=== PATIENT | female | born 1955 | race Caucasian/White ===

== ENCOUNTER 2018-10-27 10:54 | Outpatient (CLI) | payer MEDICARE, MEDICAID ==
--- NOTE | 2018-10-27 11:56 | RAD ---
XR Cerv Sp Ap Lat STANDARD History: M [age] spondylolisthesis Comparison: None. Findings: ACDF hardware at C3-C5 without hardware complication. No migration of the discectomy change s. Advanced degenerative disc space disease at C2/C3 and C5/C6. Moderate degenerative disc space disease at C6/C7. Moderate facet arthropathy C2-C5. No acute fracture. Impression: 1. Intact ACDF hardware without complication. 2. Advanced degenerative change.
== END 2018-10-27 10:55 | disposition home or self-care (01) ==
LOC: TBSIIMAG 10:54
PROVIDERS: ATTEND Neurological Surgery
DX: M43.12 Spondylolisthesis, cervical region (principal); M47.812 Spondylosis without myelopathy or radiculopathy, cervical region; Z98.1 Arthrodesis status
CPT/HCPCS: 72040

== ENCOUNTER 2018-12-16 13:59 | Outpatient (CLI) | payer MEDICARE, MEDICAID ==
--- NOTE | 2018-12-16 15:33 | RAD ---
CERVICAL SPINE SERIES THREE VIEWS: 12/16/18 HISTORY: Follow-up with surgery. COMPARISON: 10/27/18 study. Anterior cervical fusion plate and screws again noted extending from C3 to C5. Marked degenerative ch anges with disc narrowing at C5-6 and moderate changes at the C6-7 level are noted. IMPRESSION: Stable postop change. POS: [facility]
== END 2018-12-16 14:00 | disposition home or self-care (01) ==
LOC: TBSIIMAG 13:59
PROVIDERS: ATTEND Neurological Surgery
DX: M50.30 Other cervical disc degeneration, unspecified cervical region (principal); Z98.890 Other specified postprocedural states
CPT/HCPCS: 72040

== ENCOUNTER 2021-07-12 07:21 | Emergency (ER) | payer MEDICAID, MEDICARE | END 2021-07-12 08:00 | disposition left against medical advice (07) | LOC: ERS 07:21 | DX: Z53.21 Procedure and treatment not carried out due to patient leaving prior to being seen by health care provider (principal) ==